=== PATIENT | female | born 1990 | race Caucasian/White ===

== ENCOUNTER 2016-12-21 19:30 | Inpatient (IN) | payer BC, OTHER ==
[~2016-12-21] VITALS: Ht 162.6 cm; Wt 54.4 kg
--- NOTE | 2016-12-22 00:09 | NUR ---
INTAKE ASSESSMENT Pt appears mildly intoxicated but is calm and cooperative with plan of care. Pt was made aware of policies including smoking passes and vital sign assessments. Pt was given an opportunity to express any concerns and ask questions. Vital signs are as follow: BP: 103/53 P: 81 R: 18 T: 98.1 O2 Sat: 98% Pain: 0/10 . Admission assessment will continue on the 3rd floor in pt's assigned room.
[2016-12-22] MEDS ORDERED: BUPRENORPHINE HCL 2 MG TAB.SUBL SL PRN (00:15)
[2016-12-22] MEDS ORDERED: ACETAMINOPHEN 325 MG TABLET PO PRN (00:15)
[2016-12-22] MEDS ORDERED: MAG HYDROX/AL HYDROX/SIMETH 30 ML LIQUID UDC PO PRN (00:15)
[2016-12-22] MEDS ORDERED: IBUPROFEN 600 MG TABLET PO PRN (00:15)
[2016-12-22] MEDS ORDERED: DIAZEPAM 5 MG TABLET PO PRN (00:15)
[2016-12-22] MEDS ORDERED: TRAZODONE 50 MG TABLET PO PRN ×2 (00:15→12:00)
[2016-12-22] MEDS ORDERED: ONDANSETRON 4 MG/2 ML VIAL IM PRN (00:15)
[2016-12-22] MEDS ORDERED: LOPERAMIDE HCL 2 MG CAPSULE PO PRN ×2 (00:15)
[2016-12-22] MEDS ORDERED: LORAZEPAM 2 MG/1 ML VIAL IM PRN (00:15)
[2016-12-22] MEDS ORDERED: DIAZEPAM 10 MG TABLET PO PRN ×2 (00:15)
[2016-12-22] MEDS ORDERED: DIAZEPAM 10 MG TABLET PO ONE (00:30)
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
--- NOTE | 2016-12-22 01:30 | NUR ---
NURSING NOTE Pt was unable to receive Valium 10mg x 1 dose due to not providing urine. Upon assessment pt's CIWA is a 2. Pt was encouraged to notify staff of any changes in condition or of any concerns. Pt stated " I'm going back to sleep." All safety measures in place. Will continue to monitor.
[2016-12-22 01:47] LABS: HEMATOCRIT 35.1 % (37-47); HEMOGLOBIN 11.3 G/DL (12.0-16.0); LYMPHOCYTES % (AUTO) 46.3 % (20.5-51.5); MEAN CORPUSCULAR HEMOGLOBIN 28.1 UUG (27.0-31.0); MEAN CORPUSCULAR HGB CONC 32 g/dL (32.0-37.0); MEAN CORPUSCULAR VOLUME 87.5 FL (81.0-99.0); PLATELET COUNT (AUTO) 249 K/UL (150-450); RED BLOOD CELL COUNT(AUTO) 4.01 MIL/UL (4.2-5.4); WHITE BLOOD COUNT (AUTO) 7.2 K/UL (4.0-11.2)
[2016-12-22 01:48] LABS: BASOPHILS % (AUTO) 0.2 % (0.0-2.0); EOSINOPHILS # (AUTO) 0.3 K/uL (0.0-0.7); EOSINOPHILS % (AUTO) 4.5 % (0.0-7.0); LYMPHOCYTES # (AUTO) 3.4 K/UL (0.8-4.8); MONOCYTES # (AUTO) 0.5 K/UL (0.1-1.30)
[2016-12-22 02:00] LABS: ETHANOL < 3 MG/DL (0-0)
[2016-12-22 02:03] LABS: ALANINE AMINOTRANSFERASE 16 U/L (14-59); ALKALINE PHOSPHATASE 62 U/L (50-136); ASPARTATE AMINOTRANSFERASE 14 U/L (15-37); BILIRUBIN,TOTAL 0.1 mg/dL (0.2-1.0); CARBON DIOXIDE 31 mmol/L (21-32); CHLORIDE 103 mmol/L (98-107); CREATININE 0.8 mg/dL (0.6-1.3); GLUCOSE 98 mg/dL (74-106); MAGNESIUM 1.7 mg/dL (1.8-2.4); POTASSIUM 3.7 mmol/L (3.5-5.1); TOTAL PROTEIN, SERUM 6.4 g/dL (6.4-8.2); UREA NITROGEN, BLOOD 12 mg/dL (7-18)
[2016-12-22 02:13] LABS: THYROID STIMULATING HORMONE 2.817 mIU/mL (0.358-3.740)
[2016-12-22 04:00] VITALS: BP 92/54
[2016-12-22] MEDS ORDERED: MAGNESIUM OXIDE 400 MG TABLET PO ONE ×3 (06:00→13:00)
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
[2016-12-22] MEDS ORDERED: ASPI1TAB PO (07:25)
[2016-12-22] MEDS ORDERED: ESCI20TA PO (07:25)
[2016-12-22] MEDS ORDERED: DIAZ10TA PO (07:25)
[2016-12-22] MEDS ORDERED: BUPR1FIL3 SL (07:25)
[2016-12-22] MEDS ORDERED: LOPE2CAP40 GT (07:25)
[2016-12-22] MEDS ORDERED: TRAZ-144 PO (07:25)
[2016-12-22] MEDS ORDERED: LISD70CA PO (07:25)
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
[2016-12-22 08:00] VITALS: BP 98/61
[2016-12-22] MEDS: MULTIVITAMINS,THERAPEUTIC TABLET PO SCH (09:00)
[2016-12-22] MEDS ORDERED: DIAZEPAM 10 MG TABLET PO SCH (09:00)
[2016-12-22] MEDS ORDERED: BUPRENORPHINE HCL 2 MG TAB.SUBL SL SCH (09:00)
--- NOTE | 2016-12-22 09:36 | NUR ---
Patient communication; Educated patient regarding the importance of providing urine for urine drug screen, emphasized the importance of UDS/ test results prior to administering any medications, patient verbalized understanding. Addendum: 12/22/16 at 1003 by CHUCKY CHAUDHARY LVN MD notified and made aware of patient's current condition.
[2016-12-22 11:37] LABS: *AMPHETAMINE, URINE POSITIVE (NEGATIVE); *BARBITURATE, URINE NEGATIVE (NEGATIVE); *CANNABINOID, URINE NEGATIVE (NEGATIVE); *COCCAINE, URINE NEGATIVE (NEGATIVE); *OPIATE, URINE NEGATIVE (NEGATIVE); *PHENCYCLIDINE SCREEN,URINE NEGATIVE (NEGATIVE)
[2016-12-22 11:39] LABS: *URINE HCG, QUAL NEGATIVE (NEGATIVE)
[2016-12-22 12:00] VITALS: BP 102/62
[2016-12-22] MEDS: BUPRENORPHINE HCL 2 MG TAB.SUBL SL SCH ×3 (12:14→21:37)
[2016-12-22] MEDS: ESCITALOPRAM OXALATE 10 MG TABLET PO SCH (12:15)
[2016-12-22] MEDS: ASPIRIN/ACETAMINOPHEN/CAFFEINE TABLET PO PRN (12:15)
[2016-12-22] MEDS: DIAZEPAM 10 MG TABLET PO SCH ×3 (12:15→21:35)
--- NOTE | 2016-12-22 12:15 | NUR ---
PRN medication; Patient is complaining of headache , PRN excedrin 1 tab given , will continue tp monitor for effectiveness of medication.
--- NOTE | 2016-12-22 12:30 | NUR ---
Magnesium; Patient's magnesium level is 1.7, supplemented with magnesium oxide 400mg per MD order.
--- NOTE | 2016-12-22 12:37 | NUR ---
UDS result; UDS result came back positive for amphetamines and Benzodiazepine. Clarified amphetamine use with patient. Patient reported using Vyvanse for ADHD prescribed to her in June 2016.
--- NOTE | 2016-12-22 13:15 | NUR ---
Re-assessment; PRN medication is effective. Patient denies headache at this time.
[2016-12-22] MEDS: METHOCARBAMOL 750 MG TABLET PO PRN (14:17)
--- NOTE | 2016-12-22 14:18 | NUR ---
PRN medication; Patient was seen and evaluated by MD. MD ordered Valium 5mg PO PRN for CIWA of 8 and Robaxin 750mg PO PRN. Will continue to monitor patient for effectiveness of medication.
--- NOTE | 2016-12-22 15:18 | NUR ---
Re-assessment; Patient's current CIWA score is 6, PRN Valium is effective. Patient denies muscle aches at this time. PRN medications were effective.
[2016-12-22 16:00] VITALS: BP 96/63
[2016-12-22] MEDS ORDERED: NAPHAZOLINE/PHENIR OPHT DROP 15 ML BOTTLE EACHEYE PRN (17:15)
--- NOTE | 2016-12-22 18:26 | NUR ---
End of shift note; Patient is AOX4. Patient was started on a 5 day Valium and 5 day Subutex taper, no adverse reactions noted. Patient remained compliant with treatment plan. Medications were effective in reducing withdrawal symptoms. Patient is on fall and seizure precautions. Bed in lowest position, call light within reach. Met all needs. Addendum: 12/22/16 at 1846 by CHUCKY CHAUDHARY LVN Patient unable to provide urine for urinalysis and STD testing at this time. Educated patient regarding the importance of providing urine, patient verbalized understanding. Will endorse to night nurse.
[2016-12-22 20:00] VITALS: BP 96/61
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
[2016-12-22] MEDS: GABAPENTIN 300 MG CAPSULE PO SCH (21:35)
--- NOTE | 2016-12-23 | NUR ---
VITALS REFUSED/COW AND CIWA DEFERRED Pt refused to have vitals taken at this time. Pt was encouraged x 3 with risks and benefits explained, but the pt still declined. COW and CIWA assessment deferred until pt is awake. All safety measures in place. Will continue to monitor. Addendum: 12/23/16 at 0441 by LADI KEENE LVN Amended: Links added.
--- NOTE | 2016-12-23 04:00 | NUR ---
VITALS REFUSED/COW AND CIWA DEFERRED Pt refused to have vitals taken at this time. Pt was encouraged x 3 with risks and benefits explained, but the pt still declined. COW and CIWA assessment deferred until pt is awake. All safety measures in place. Will continue to monitor. Addendum: 12/23/16 at 0442 by LADI KEENE LVN Amended: Links added.
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
--- NOTE | 2016-12-23 07:15 | NUR ---
start of shift note: received pt from night court magistrate nurse, pt is in stable condition. pt is admitted to [facility] for opiate/benzo withdrawal/dependence. pts last cows 3 and ciwa 1. will monitor pt for any A/R to medications.
[2016-12-23 08:08] LABS: HEPATITIS B SURFACE AG Negative (Negative)
[2016-12-23 09:00] VITALS: BP 103/66
[2016-12-23] MEDS ORDERED: TUBERCULIN,PURIF.PROT.DERIV. 5 TU/0.1 ML TEST ID ONE ×2 (09:00→21:00)
[2016-12-23] MEDS: DIAZEPAM 10 MG TABLET PO SCH ×3 (09:47→21:01)
[2016-12-23] MEDS: ESCITALOPRAM OXALATE 10 MG TABLET PO SCH (09:47)
[2016-12-23] MEDS: GABAPENTIN 300 MG CAPSULE PO SCH (09:47)
[2016-12-23] MEDS: MULTIVITAMINS,THERAPEUTIC TABLET PO SCH (09:47)
[2016-12-23] MEDS: BUPRENORPHINE HCL 2 MG TAB.SUBL SL SCH ×3 (09:47→21:00)
[2016-12-23] MEDS: ASPIRIN/ACETAMINOPHEN/CAFFEINE TABLET PO PRN ×2 (10:01→19:25)
[2016-12-23] MEDS: CLONIDINE HCL 0.1 MG TABLET PO PRN ×2 (10:01→19:25)
--- NOTE | 2016-12-23 10:01 | NUR ---
PRN ADMINISTRATION: PT WITH COMPLAINTS OF HOT AND COLD SWEATS, AND COMPLAINED OF A MIGRAINE. PRN CLONIDINE AND EXCEDRIN WAS ADMINISTERED. WILL RE-ASSESS EFFECTIVENESS OF MEDICATION.
[2016-12-23] MEDS ORDERED: BACLOFEN 10 MG TABLET PO ONE (12:30)
[2016-12-23 12:53] VITALS: BP 99/63
[2016-12-23] MEDS ORDERED: DIAZEPAM 5 MG TABLET PO ONE (13:00)
[2016-12-23] MEDS ORDERED: BUPRENORPHINE HCL 2 MG TAB.SUBL SL ONE (13:00)
[2016-12-23] MEDS: BACLOFEN 10 MG TABLET PO SCH ×2 (15:21→21:01)
[2016-12-23] MEDS: GABAPENTIN 400 MG CAPSULE PO SCH ×2 (15:21→21:01)
[2016-12-23 17:27] VITALS: BP 102/89
[2016-12-23 18:45] LABS: *BILIRUBIN,URIN NEGATIVE (NEGATIVE); *BLOOD, URINE Trace-intact (NEGATIVE); *CLARITY,URINE CLOUDY (CLEAR); *COLOR,URINE YELLOW (YELLOW); *KETONES,URINE NEGATIVE (NEGATIVE); *PROTEIN,URINE NEGATIVE (NEGATIVE); *UROBILINOGEN,URINE 0.2 E.U./dl (NORMAL); LEUKOCYTE ESTERASE ,URINE 1+ (NEGATIVE); NITRITE, URINE NEGATIVE (NEGATIVE); UGLUCOSE NEGATIVE (NEGATIVE)
[2016-12-23 18:55] LABS: BACTERIA,URINE MODERATE /HPF (NONE SEEN); SQUAMOUS EPITHELIAL CELL,UR MANY /HPF (NONE SEEN)
[2016-12-23 18:56] LABS: MUCUS,URINE MODERATE /LPF (0-FEW)
--- NOTE | 2016-12-23 19:18 | NUR ---
end of shift note: pt at this time with compliants of headache and withdrawal symtopms of restlessness, and hot and cold sweats. pts last cows 4 and ciwa 1. pt appears to be focused on medication doses and times. pt is re directable. pt is admitted to [facility] for benzo and opiates. will endorse pt tonight shift nurse. will administer clonidine and Excedrin. with shift supervisor film processing nurse to follow
[2016-12-23 20:00] VITALS: BP 102/64
--- NOTE | 2016-12-23 20:00 | NUR ---
Start of shift: Patient is a 26 yrs old female, admitted to [facility] for benzo and opiates dependency. Pt is alert and oriented, compliants of hot and cold sweats and bodyaches. Last cows 4 and ciwa 4. Patient appears to be focused on medication doses and times. Patient is compliance with treatment and activities; will continue to monitor.
--- NOTE | 2016-12-23 20:25 | NUR ---
PRN REASSESSMENT: Patient received prn clonidine from day nurse @1925, pt was feeling anxious and having withdrawal symptoms. Patient had a schedule dose of Clonidine at 2100, held dose due to earlier administration of prn Clonidine. Med was effective due to patient was calmer and relaxing in room.
[2016-12-23] MEDS: CLONIDINE HCL 0.1 MG TABLET PO SCH (21:00)
[2016-12-24] VITALS: BP 87/50
[2016-12-24 04:00] VITALS: BP 100/69
--- NOTE | 2016-12-24 07:16 | NUR ---
End of shift: Patient is a 26 yrs old female, admitted to [facility] for benzo and opiates dependency. Pt is alert and oriented, pt c/o hot and cold sweats and body aches. PRN clonidine given to patient and scheduled clonidine was held. Last cows 0 and ciwa 0. Patient slept 8 hrs. All pertinent information endorsed to am nurse. Patient will continue to be monitor.
--- NOTE | 2016-12-24 07:17 | NUR ---
Start of Shift Notes: Received patient in her room. Alert and oriented x 4. Verbally responsive. Able to make need known. Respirations even and unlabored. No SOB noted. Skin warm and dry to touch. Abdomen soft and non-distended with (+) BS in all 4 quadrants. No complains of N/V/D or constipation noted. Bladder non-distended. No complains of bladder pain or discomfort. Voids independently. Ambulatory ad darnell with steady gait. Patient is a 26 year old female admitted for opiate and BZO dependence who was placed on a 5-day Valium and 5-day Subutex taper as ordered. No adverse reactions noted. Has past medical hx of anxiety, ADD, depression, insomnia, PID, and chlamydia. NKA. FULL CODE. Regular diet. On fall and seizure precautions. Educated patient on her current plan of care for the day and her medication regimen. Encouraged oral fluid intake and encouraged group participation to learn new skills to prevent relapse.
[2016-12-24 08:00] VITALS: BP 102/71
[2016-12-24] MEDS ORDERED: BUPRENORPHINE HCL 2 MG TAB.SUBL SL SCH (09:00)
[2016-12-24] MEDS: ASPIRIN/ACETAMINOPHEN/CAFFEINE TABLET PO PRN ×2 (09:26→22:37)
[2016-12-24] MEDS: ESCITALOPRAM OXALATE 10 MG TABLET PO SCH (09:26)
[2016-12-24] MEDS: BACLOFEN 10 MG TABLET PO SCH ×2 (09:26→14:30)
[2016-12-24] MEDS: MULTIVITAMINS,THERAPEUTIC TABLET PO SCH (09:27)
[2016-12-24] MEDS: DIAZEPAM 5 MG TABLET PO SCH ×4 (09:27→20:11)
[2016-12-24] MEDS: GABAPENTIN 400 MG CAPSULE PO SCH ×2 (09:27→14:30)
[2016-12-24] MEDS: CLONIDINE HCL 0.1 MG TABLET PO SCH ×2 (09:27→20:12)
--- NOTE | 2016-12-24 09:27 | NUR ---
Excedrin 1 tab PO given: Patient noted with complain of migraine headache 11/05. Non-pharmacological interventions were ineffective. Medicated patient with Excedrin 1 tab PO as ordered. Will monitor for effectiveness.
--- NOTE | 2016-12-24 10:27 | NUR ---
Re-assessment: Per patient, PRN Excedrin was effective in reducing patient's headache. PL 07/08.
[2016-12-24 12:00] VITALS: BP 92/50
[2016-12-24] MEDS: BUPRENORPHINE HCL 2 MG TAB.SUBL SL SCH ×2 (14:30→20:12)
[2016-12-24 16:00] VITALS: BP 96/52
[2016-12-24] MEDS ORDERED: METHYL SALICYLATE/MENTHOL CREAM 28 GM TUBE TOP PRN (16:45)
[2016-12-24] MEDS: KETOROLAC TROMETHAMINE 30 MG INJ IM PRN ×2 (17:08→23:45)
--- NOTE | 2016-12-24 17:08 | NUR ---
Toradol 30 mg IM given: Patient noted with complain of 6/10 generalized muscle aches and pains related to withdrawal. Patient appears guarded and is unable to participate in group. Medicated patient with Toradol 30 mg IM as ordered. Will monitor for effectiveness.
--- NOTE | 2016-12-24 17:38 | NUR ---
Re-assessment: Per patient, PRN Toradol was effective in reducing patient's pain. PL 3.
--- NOTE | 2016-12-24 18:53 | NUR ---
End of Shift Notes: Patient continues to be on 5-day Valium and Subutex taper as ordered. No adverse reactions noted. VS monitored closely. No significant abnormalities noted. Withdrawal symptoms were closely monitored. Initial COWS 9, /CIWA 5. Patient presented with anxiety, agitation, muscle aches and pains, chills, hot flashes and nasal stuffiness. Last COWS 4/CIWA 4. Per patient, Subutex and Ativan has been effective in reducing her withdrawal symptoms. Patient was unable to participate in group and activities due to her therapy sessions. Medicated patient with Excedrin 1 tab at 0927 for migraine headache with help after 1 hour and Toradol 30 mg IM at 1708 for generalized 6/10 muscle aches with help after 30 minutes. Compliant with care and treatment. Safety precautions in place. Able to participate in group and activity sessions. All needs met and attended. Will continue to monitor.
--- NOTE | 2016-12-24 19:30 | NUR ---
START OF SHIFT Patient is a 26 yrs old female, admitted to [facility] for Benzo and Opiates dependency. Pt is alert and oriented x 4.NKA,FULL CODE;regular diet.Received in room in stable condition,focused on getting her medications early. Last COWS= 4 and CIWA= 4. Patient is compliant with treatment and medications;no s/s of acute distress noted; will continue to monitor.
[2016-12-24 20:00] VITALS: BP 98/64
[2016-12-24] MEDS: NITROFURANTOIN/NITROFURAN MAC 100 MG CAPSULE PO SCH (20:11)
[2016-12-24] MEDS: BACLOFEN 20 MG TABLET PO SCH (20:12)
[2016-12-24] MEDS ORDERED: GABAPENTIN 400 MG CAPSULE PO SCH (21:00)
[2016-12-24] MEDS: METHOCARBAMOL 750 MG TABLET PO PRN (22:37)
[2016-12-24] MEDS: MAGNESIUM HYDROXIDE 30 ML LIQUID UDC PO PRN (22:38)
--- NOTE | 2016-12-24 22:40 | NUR ---
PRN MEDS PRN MOM,ROBAXIN AND EXCEDRIN GIVEN ORDERED FOR C/O CONSTIPATION,MYALGIA AND HEADACHE RESPECTIVELY,PAIN LEVEL 7/10.WILL MONITOR.
--- NOTE | 2016-12-24 23:45 | NUR ---
PRN F/U PRN MEDS ARE MINIMALLY EFFECTIVE IN REDUCING PAIN.PT IS NOW C/O PAIN 9/10 IN HER RIGHT HIP AND LEG.PRN TORADOL IM GIVEN ORDERED PER PT REQUEST.WILL CONTINUE TO MONITOR.
[2016-12-25] VITALS: BP 93/62
--- NOTE | 2016-12-25 00:45 | NUR ---
PRN F/U PT IS SLEEPING IN DEEP SLEEP.NO S/S OF DISTRESS NOTED.
[2016-12-25 04:00] VITALS: BP 92/59
--- NOTE | 2016-12-25 07:09 | NUR ---
END OF SHIFT Patient is a 26 yrs old female, admitted to [facility] for Benzo and Opiates dependency. Pt is alert and oriented x 4.NKA,FULL CODE;regular diet.Pt was received in room in stable condition,focused on getting her medications early;was medicated per orders;PRN MOM,Robaxin, Excedrin and Toradol IM were given and were effective.Pt slept 8 hrs,fluid intake was 1298 mls,voided x 3. Last COWS= 2 and CIWA= 2 @ 0400. Patient is compliant with treatment and medications; no s/s of acute distress noted; will continue to monitor.
--- NOTE | 2016-12-25 07:15 | NUR ---
Start Of Shift Report received. Patient is a 26 yrs old female, admitted to [facility] for Benzo and Opiates dependency. Pt is full code regular diet on fall and seizure precautions. denies any food or drug allergies. Pt reports PMH of anxiety, ADD, Depression, and Insomnia. Pt is continuing her 5 day Valium and 5 day Subutex tolerating well. Per warehouse worker 2nd shift nurse pt received PRN MOM, Robaxin, Excedrin and Toradol IM medications were effective. Pts last COWS 2 and CIWA 2 taken at 0400. Encouraged pt to drink adequate amount of fluids to facilitate detox process. All safety measures in place bed in lowest locket position, pt slept a total of 8 hours last night. All needs met will continue to monitor and provide care
[2016-12-25 08:00] VITALS: BP 106/68
[2016-12-25] MEDS ORDERED: GABAPENTIN 400 MG CAPSULE PO SCH (09:00)
[2016-12-25] MEDS: MULTIVITAMINS,THERAPEUTIC TABLET PO SCH (09:58)
[2016-12-25] MEDS: BACLOFEN 20 MG TABLET PO SCH ×3 (09:58→20:59)
[2016-12-25] MEDS: NITROFURANTOIN/NITROFURAN MAC 100 MG CAPSULE PO SCH ×2 (09:58→21:00)
[2016-12-25] MEDS: DIAZEPAM 5 MG TABLET PO SCH ×3 (09:58→21:01)
[2016-12-25] MEDS: ESCITALOPRAM OXALATE 10 MG TABLET PO SCH (09:58)
[2016-12-25] MEDS: BUPRENORPHINE HCL 2 MG TAB.SUBL SL SCH ×3 (09:59→21:03)
[2016-12-25] MEDS: CLONIDINE HCL 0.1 MG TABLET PO SCH ×3 (10:00→21:00)
[2016-12-25 12:00] VITALS: BP 124/77
[2016-12-25] MEDS: METHOCARBAMOL 750 MG TABLET PO PRN (12:38)
[2016-12-25] MEDS: KETOROLAC TROMETHAMINE 30 MG INJ IM PRN (12:39)
[2016-12-25] MEDS ORDERED: MIRALAX 17 GM POWD.PACK PO ONE (13:00)
[2016-12-25] MEDS: DOCUSATE SODIUM 250 MG CAPSULE PO SCH (14:05)
[2016-12-25] MEDS: GABAPENTIN 400 MG CAPSULE PO SCH ×2 (14:06→20:59)
[2016-12-25 16:00] VITALS: BP 100/70
[2016-12-25] MEDS: METHYL SALICYLATE/MENTHOL CREAM 28 GM TUBE TOP SCH (17:00)
--- NOTE | 2016-12-25 19:26 | NUR ---
End Of Shift Report given. Patient is a 26 yrs old female, admitted to [facility] for Benzo and Opiates dependency. Pt is full code regular diet on fall and seizure precautions. denies any food or drug allergies. Pt reports PMH of anxiety, ADD, Depression, and Insomnia. Pt is continuing her 5 day Valium and 5 day Subutex tolerating well. VS monitored closely q 4 hours. Withdrawal symptoms were closely monitored. Initial COWS 5 CIWA 5. Patient encouraged adequate PO fluid intake as tolerated. Patient presented with tremors and anxiety during the day. Last COWS 4 CIWA 4. Per patient, Subutex has been helping her with her withdrawal symptoms. Pt ate all of her meals. Pt received PRN Toradol and Robaxin medications were effective. Patient encouraged to attend group therapies/sessions to learn new coping skills to recent relapse, patient denies SI/HI. Participated in group and therapy sessions. All needs met and attended
[2016-12-25 20:00] VITALS: BP 100/68
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
[2016-12-25] MEDS: ONDANSETRON ODT 4 MG TAB.RAPDIS SL PRN (21:01)
--- NOTE | 2016-12-25 21:01 | NUR ---
ZOFRAN PRN ADMINISTRATION Pt reported being nauseous. Zofran 4 mg ODT PRN given. Will monitor for effectiveness.
--- NOTE | 2016-12-25 21:31 | NUR ---
ZOFRAN PRN REASSESSMENT Pt reported nausea going away. PRN effective. Will continue to monitor.
[2016-12-26] VITALS: BP 94/51
[2016-12-26] MEDS: KETOROLAC TROMETHAMINE 30 MG INJ IM PRN ×2 (01:34→11:16)
--- NOTE | 2016-12-26 01:34 | NUR ---
TORADOL PRN ADMINISTRATION Pt reported having generalized pain "8". Toradol 30 mg IM PRN was given and pt's Left gluteal muscle. Pt was encouraged to notify staff of any changes in condition or of any concerns. Pt verbalized an understanding. All safety measures in place. Will monitor for effectiveness.
--- NOTE | 2016-12-26 02:34 | NUR ---
TORADOL PRN REASSESSMENT Pt reported " I feel better. It's like a 2 and a half out of 10 now." PRN effective. All safety measures in place. Will continue to monitor.
--- NOTE | 2016-12-26 04:00 | NUR ---
VITALS REFUSED/ COW AND CIWA DEFERRED Pt refused to have vitals taken at this time. Pt was encouraged x 3 with risks and benefits explained, but the pt still refused. COW and CIWA assessment deferred until pt is awake. All safety measures in place. Will continue to monitor. Addendum: 12/26/16 at 0452 by LADI KEENE LVN Amended: Links added.
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
--- NOTE | 2016-12-26 08:04 | NUR ---
BEGINNING OF SHIFT Patient endorsement report received from assistant shift supervisor nurse, all pertinent information discussed. Patient is a 26 year old female admitted on 12/21/2016 with admitting Dx:Opiate/BZO dependence. Patient with ongoing 5 day Valium taper and ongoing 5 day Subutex taper as ordered. Patient received PRN: Toradol injection and Zofran as ordered medications were effective. Last CIWA score of: 0 and last COW score of: 2. Patient slept for 5 hours. patient received in bed awake, alert and oriented x4, educated regarding plan of care for the day and medication regimen with good verbal understanding, will monitor closely. fall and seizure precautions observed at all times. all needs met and rendered, will continue to monitor.
[2016-12-26] MEDS: ESCITALOPRAM OXALATE 10 MG TABLET PO SCH (08:55)
[2016-12-26] MEDS: BACLOFEN 20 MG TABLET PO SCH ×3 (08:55→20:43)
[2016-12-26] MEDS: MULTIVITAMINS,THERAPEUTIC TABLET PO SCH (08:55)
[2016-12-26] MEDS: GABAPENTIN 400 MG CAPSULE PO SCH ×3 (08:55→20:42)
[2016-12-26] MEDS: DIAZEPAM 5 MG TABLET PO SCH ×2 (08:55→20:42)
[2016-12-26] MEDS: DOCUSATE SODIUM 250 MG CAPSULE PO SCH (08:55)
[2016-12-26] MEDS: NITROFURANTOIN/NITROFURAN MAC 100 MG CAPSULE PO SCH ×2 (08:55→20:42)
[2016-12-26] MEDS: BUPRENORPHINE HCL 2 MG TAB.SUBL SL SCH ×2 (08:56→20:51)
[2016-12-26] MEDS: CLONIDINE HCL 0.1 MG TABLET PO SCH ×3 (08:58→20:52)
[2016-12-26] MEDS: METHYL SALICYLATE/MENTHOL CREAM 28 GM TUBE TOP SCH ×2 (08:59→16:54)
[2016-12-26 09:00] VITALS: BP 91/64
[2016-12-26] MEDS ORDERED: BUPRENORPHINE HCL 2 MG TAB.SUBL SL SCH (09:00)
--- NOTE | 2016-12-26 11:16 | NUR ---
PRN TORADOL Patient c/o 02/05 pain to bilateral hip and legs, provided with pharmacological interventions with no relief, administered Toradol injection as ordered, will monitor effectiveness of medication.
[2016-12-26] MEDS ORDERED: BUPRENORPHINE HCL 2 MG TAB.SUBL SL ONE (12:00)
[2016-12-26] MEDS ORDERED: DIAZEPAM 5 MG TABLET PO ONE (12:00)
--- NOTE | 2016-12-26 12:16 | NUR ---
TORADOL REASSESSMENT Patient reports medication effective, current pain level 2/10, tolerable as per patient, will continue to monitor closely.
[2016-12-26 12:20] VITALS: BP 113/71
[2016-12-26] MEDS ORDERED: FLEET ENEMA 133 ML BOTTLE RC PRN (13:45)
[2016-12-26] MEDS ORDERED: MAGNESIUM CITRATE 296 ML BOTTLE PO ONE (13:45)
[2016-12-26] MEDS: ONDANSETRON ODT 4 MG TAB.RAPDIS SL PRN (14:58)
--- NOTE | 2016-12-26 14:58 | NUR ---
PRN ZOFRAN/MAGNESIUM CITRATE Patient reports constipation, as per patient no bowel movement in "few days" Abdomen is soft and distended, bowel sounds heard in all quadrants. patient reports feeling nauseous, no episodes of vomiting noted, notified Dr. grimes with new orders for magnesium citrate, administered Zofran as ordered as well, will monitor effectiveness of medication.
[2016-12-26] MEDS: DICYCLOMINE HCL 20 MG TABLET PO PRN (15:06)
--- NOTE | 2016-12-26 15:06 | NUR ---
PRN BENTYL Patient c/o stomach cramps, administered Bentyl as ordered, will monitor effectiveness of medication.
--- NOTE | 2016-12-26 15:58 | NUR ---
GALENFRAN REASSESSMENT Patient reports feeling less nauseous. encouraged patient to increase PO fluid intake as tolerated. will continue to monitor closely.
--- NOTE | 2016-12-26 16:00 | NUR ---
BEHAVIOR Patient placed on room restriction per administration, patient with behavioral issues, patient noted not following unit protocols and fraternizing with other clients on the unit. is aware.
--- NOTE | 2016-12-26 16:06 | NUR ---
BENTYL REASSESSMENT Patient reports medication effective, no c/o stomach cramps, will continue to monitor.
[2016-12-26 17:38] VITALS: BP 91/65
--- NOTE | 2016-12-26 19:15 | NUR ---
END OF SHIFT Patient alert and oriented x4, vital signs stable during shift. Admitting Dx: Opiate/ BZO dependence, Patient continues on Subutex taper as ordered, and Valium taper as ordered, well tolerated, no ASE noted. During shift patient received a one time additional dose of Valium 5mg Po and Subutex 4mg sl as ordered. Encouraged adequate PO fluid intake as tolerated. During shift patient received PRN: Toradol injection as ordered, Bentyl as ordered, Zofran as ordered and magnesium citrate as ordered, medications were effective one hour post administration. 0900 assessment patient presented with: c/o chills, dilated pupils, mild bone and joint aches, mild anxiety, barely sweating and mild agitation with cow score of: 4 and ciwa score of: 3; 1300 assessment patient presented with: c/o chills, dilated pupils, mild bone and joint aches, mild anxiety, barely sweating and mild agitation with cow score of: 4 and ciwa score of: 3; 1700 assessment patient presented with: c/o chills, dilated pupils, mild bone and joint aches, mild anxiety, barely sweating and mild agitation with cow score of: 4 and ciwa score of: 3. Patient encouraged to attend group/therapy sessions to learn new coping skills to prevent relapse, denies SI/HI. Patient placed on room restriction per administration, patient with behavioral issues, patient noted not following unit protocols and fraternizing with other clients on the unit. MD is aware. Safety measures in place. call light kept with in reach. Patient endorsement report given to shift stacker nurse, all pertinent information discussed. safety measures in place. will continue to monitor.
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
[2016-12-26 20:00] VITALS: BP 95/63
--- NOTE | 2016-12-27 | NUR ---
VITALS REFUSED/ COW AND CIWA DEFERRED Pt refused to have vitals taken at this time. Pt was encouraged x 3 with risks and benefits explained, but the pt still refused. COW AND CIWA assessment deferred until pt is awake. All safety measures in place. Will continue to monitor. Addendum: 12/27/16 at 0616 by LADI KEENE LVN Amended: Links added.
--- NOTE | 2016-12-27 04:00 | NUR ---
VITALS REFUSED/ COW AND CIWA DEFERRED Pt refused to have vitals taken at this time. Pt was encouraged x 3 with risks and benefits explained, but the pt still refused. COW AND CIWA assessment deferred until pt is awake. All safety measures in place. Will continue to monitor. Addendum: 12/27/16 at 0620 by LADI KEENE LVN Amended: Links added.
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
[2016-12-27 08:05] VITALS: BP 116/78
[2016-12-27] MEDS: BACLOFEN 20 MG TABLET PO SCH ×2 (08:09→16:02)
[2016-12-27] MEDS: ESCITALOPRAM OXALATE 10 MG TABLET PO SCH (08:09)
[2016-12-27] MEDS: MULTIVITAMINS,THERAPEUTIC TABLET PO SCH (08:09)
[2016-12-27] MEDS: DOCUSATE SODIUM 250 MG CAPSULE PO SCH (08:09)
[2016-12-27] MEDS: NITROFURANTOIN/NITROFURAN MAC 100 MG CAPSULE PO SCH ×2 (08:09→20:49)
[2016-12-27] MEDS: GABAPENTIN 400 MG CAPSULE PO SCH ×2 (08:09→16:02)
[2016-12-27] MEDS: CLONIDINE HCL 0.1 MG TABLET PO SCH (08:10)
[2016-12-27] MEDS: METHYL SALICYLATE/MENTHOL CREAM 28 GM TUBE TOP SCH ×2 (08:16→16:22)
[2016-12-27] MEDS: ASPIRIN/ACETAMINOPHEN/CAFFEINE TABLET PO PRN (08:28)
[2016-12-27] MEDS: MAGNESIUM HYDROXIDE 30 ML LIQUID UDC PO PRN (08:28)
--- NOTE | 2016-12-27 08:29 | NUR ---
PRN MEDICATION Patient complaining of headache 9 out of 10 pain. Excedrin given Patient complaining of constipation,milk of magnesia given Patients eyes are red and swollen, eye drops given Will reassess and monitor patient
[2016-12-27] MEDS ORDERED: BUPRENORPHINE HCL 2 MG TAB.SUBL SL SCH (09:00)
[2016-12-27] MEDS ORDERED: DIAZEPAM 5 MG TABLET PO SCH (09:00)
--- NOTE | 2016-12-27 09:00 | NUR ---
PRN REASSESSMENT Patients headache has gotten better pain reported 3 out of 10 Patient is still unable to poop, encouraged to drink fluids, will continue to monitor Patients eye redness and swelling as gone down a little, will continue to monitor
[2016-12-27 09:09] LABS: *GC NAA Negative (Negative); *TRIC.VAG. NAA Negative (Negative)
[2016-12-27] MEDS ORDERED: CLON0.1T14 PO (10:07)
[2016-12-27] MEDS ORDERED: DICY20TA28 PO (10:07)
[2016-12-27] MEDS ORDERED: GABA-536 PO (10:07)
[2016-12-27] MEDS ORDERED: BACL20TA PO (10:07)
[2016-12-27] MEDS ORDERED: IBUP-1955 PO (10:07)
[2016-12-27 12:00] VITALS: BP 91/52
[2016-12-27 16:16] VITALS: BP 108/53
[2016-12-27] MEDS: DICYCLOMINE HCL 20 MG TABLET PO PRN (16:21)
[2016-12-27] MEDS ORDERED: GABA-534 PO (16:22)
[2016-12-27] MEDS: KETOROLAC TROMETHAMINE 30 MG INJ IM PRN (16:22)
[2016-12-27] MEDS: MIRALAX 17 GM POWD.PACK PO PRN (16:22)
--- NOTE | 2016-12-27 16:26 | NUR ---
PRN MEDICATIONS Patient complaining of stomach cramps, constipations, and pain. Patient was given miralax, Toradol, and Bentyl. Will continue to monitor and reassess.
[2016-12-27] MEDS ORDERED: CLONIDINE HCL 0.1 MG TABLET PO PRN (16:30)
--- NOTE | 2016-12-27 17:00 | NUR ---
PRN REASSESSMENT patient given miralax, Toradol, and Bentyl for stomach cramps, constipation and pain. Patient reports feeling better and taking a small bowel movement. Encouraged to drink fluids. will continue to monitor and assess to changes.
--- NOTE | 2016-12-27 18:47 | NUR ---
END OF SHIFT NOTE Patient is on room restriction for inappropriate behavior. Patient has remained in bed throughout the day sleeping off and on. Vital signs have remained normal with BP running low with no symptoms. Patient received PRN milk of magnesia for constipation, Excedrin for a headache, and eye drops for red/swollen eyes in the morning. Patient was also given Miralax, Toradol, and Bentyl in the afternoon for stomach cramps and pain. PRN meds were effective. Last COWS 7 CIWA 6. Patients Clonidine at 1500 was held due to the patient having low BP, MD aware. Respirations are even and unlabored. Plan is for patient to be discharge tomorrow to changing tides. All needs have been met. All safety measures in place. Will continue to monitor patient until endorsed to oncoming nurse.
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
[2016-12-27 20:00] VITALS: BP 91/56
[2016-12-27] MEDS: GABAPENTIN 300 MG CAPSULE PO SCH (20:49)
[2016-12-27] MEDS: BACLOFEN 20 MG TABLET PO PRN (22:28)
--- NOTE | 2016-12-27 22:28 | NUR ---
BACLOFEN PRN ADMINISTRATION Pt reported having muscle aches. "I'm not really in pain. I'm just starting to ache all over and it's uncomfortable." Baclofen 20 mg PO PRN was given. Pt was encouraged to notify staff of any changes in condition or of any concerns. Pt verbalized an understanding. All safety measures in place. Will monitor for effectiveness.
--- NOTE | 2016-12-27 23:28 | NUR ---
BACLOFEN PRN REASSESSMENT Pt stated " I feel better now." PRN effective. All safety measures in place. Will continue to monitor.
--- NOTE | 2016-12-27 23:46 | NUR ---
TRAZODONE PRN ADMINISTRATION Pt received Trazodone 50 mg PO PRN for a c/o insomnia. All safety measures in place. Will monitor for effectiveness.
[2016-12-28] VITALS: BP 86/52
--- NOTE | 2016-12-28 00:42 | NUR ---
TRAZODONE PRN REASSESSMENT Pt is asleep at this time with no signs of discomfort/distress noted. Breathing is even and unlabored. PRN effective. All safety measures in place. Will continue to monitor.
--- NOTE | 2016-12-28 04:00 | NUR ---
VITALS REFUSED/ COW AND CIWA DEFERRED Pt refused to have vitals taken at this time. Pt was encouraged x 3 with risks and benefits explained but the pt still declined. COW and CIWA assessment deferred until pt is awake. All safety measures in place. Will continue to monitor. Addendum: 12/28/16 at 0603 by LADI KEENE LVN Amended: Links added.
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
[2016-12-28 08:00] VITALS: BP 100/60
--- NOTE | 2016-12-28 08:05 | NUR ---
START OF SHIFT: RECEIVED PT A/O X 4. SHE C/O MILD BODY ACHES AND ANXIETY. VALIUM/SUBUTEX TAPER COMPLETED AND DISCHARGE PLANNING IN PROGRESS FOR NEAR FUTURE. CIWA 1 COWS 2. PRN BACLOFEN ADMINISTERED ALONG WITH PRN MIRALAX FOR REPORTED CONSTIPATION X 2 DAYS. SHE IS ON ROOM RESTRICTION FOR INAPPROPRIATE BEHAVIOR. ENCOURAGED INCREASED FLUIDS. WILL CONTINUE TO MONITOR AND OFFER SUPPORT.
[2016-12-28 08:19] LABS: *AMPHETAMINE, URINE NEGATIVE (NEGATIVE); *BARBITURATE, URINE NEGATIVE (NEGATIVE); *CANNABINOID, URINE NEGATIVE (NEGATIVE); *COCCAINE, URINE NEGATIVE (NEGATIVE); *OPIATE, URINE NEGATIVE (NEGATIVE); *PHENCYCLIDINE SCREEN,URINE NEGATIVE (NEGATIVE)
[2016-12-28] MEDS: GABAPENTIN 300 MG CAPSULE PO SCH (08:42)
[2016-12-28] MEDS: ESCITALOPRAM OXALATE 10 MG TABLET PO SCH (08:43)
[2016-12-28] MEDS: NITROFURANTOIN/NITROFURAN MAC 100 MG CAPSULE PO SCH (08:43)
[2016-12-28] MEDS: MULTIVITAMINS,THERAPEUTIC TABLET PO SCH (08:44)
[2016-12-28] MEDS: BACLOFEN 20 MG TABLET PO PRN (08:44)
[2016-12-28] MEDS: METHYL SALICYLATE/MENTHOL CREAM 28 GM TUBE TOP SCH (08:47)
[2016-12-28] MEDS: MIRALAX 17 GM POWD.PACK PO PRN (08:50)
--- NOTE | 2016-12-28 11:00 | NUR ---
DISCHARGE: PT IS A/O X 4. SHE DENIES S/I AND H/I. SHE STATES SHE IS MOTIVATED TO STAY CLEAN AND LOOKS FORWARD TO GOING TO TREATMENT. BELONGINGS RETURNED. EDUCATED PT ON DISCHARGE INSTRUCTIONS AND MEDICATIONS. PT EXPRESSED VERBAL UNDERSTANDING. [facility] ESCORTED PT TO [facility] WHERE SHE WAS TRANSPORTED BY [facility] AT 1040.
== END 2016-12-28 10:40 | disposition other institution (70) | DRG 895 ==
LOC: SRC 22:57
PROVIDERS: ADMIT Internal Medicine; ATTEND Internal Medicine
PROC: HZ2ZZZZ Detoxification Services for Substance Abuse Treatment (ICD-10-PCS; principal; 2016-12-21)
PROC: HZ31ZZZ Individual Counseling for Substance Abuse Treatment, Behavioral (ICD-10-PCS; 2016-12-25)
DX: F11.23 Opioid dependence with withdrawal (principal); N30.01 Acute cystitis with hematuria; F13.230 Sedative, hypnotic or anxiolytic dependence with withdrawal, uncomplicated; F17.210 Nicotine dependence, cigarettes, uncomplicated; F41.9 Anxiety disorder, unspecified; F90.9 Attention-deficit hyperactivity disorder, unspecified type; G47.00 Insomnia, unspecified; E83.42 Hypomagnesemia; D64.9 Anemia, unspecified; K59.03 Drug induced constipation; F32.9 Major depressive disorder, single episode, unspecified; Z83.79 Family history of other diseases of the digestive system; Z79.899 Other long term (current) drug therapy; Z80.7 Family history of other malignant neoplasms of lymphoid, hematopoietic and related tissues; Z81.1 Family history of alcohol abuse and dependence
CPT/HCPCS: 36415; 80307; 80324; 80346; 83735; 84443; 84703; 85025; 86592; 86705; 86803; 87340; 87491; 87806; A4663; G0480; J1885; Q0162